=== PATIENT | female | born 1980 | race American Indian/Alaskan Native ===

== ENCOUNTER 2021-07-22 23:58 | Emergency (ER) | payer OTHER ==
[2021-07-23] MEDS ORDERED: ACETAMINOPHEN 500 MG TAB PO ONE (02:25)
[2021-07-23] MEDS ORDERED: IBUPROFEN 600 MG TAB PO ONE (02:25)
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
[2021-07-23 04:48] VITALS: BP 162/105
== END 2021-07-23 04:48 | disposition home or self-care (01) ==
LOC: ED 23:58
DX: S20.219A Contusion of unspecified front wall of thorax, initial encounter (principal); M62.830 Muscle spasm of back; M54.50 Low back pain, unspecified; M62.838 Other muscle spasm; M54.2 Cervicalgia; V89.2XXA Person injured in unspecified motor-vehicle accident, traffic, initial encounter; Y93.89 Activity, other specified; Y92.488 Other paved roadways as the place of occurrence of the external cause; Y99.8 Other external cause status
CPT/HCPCS: 71046; 72040; 72100; 99283